=== PATIENT | male | born 1950 | race African-American/Black ===

== ENCOUNTER 2019-04-27 10:58 | Inpatient (IN) | payer OTHER ==
[2019-04-27 11:57] LABS: BASO % 1.1 % (0-2.0); EOS % 1.9 % (0-4.5); HEMATOCRIT 31.7 % (35.4-49); HEMOGLOBIN 10.4 GM/dL (11.7-16.9); LYMPH % 37.6 % (8-40); MCH 31.8 pg (25.7-33.7); MCHC 32.8 g/dl (32.0-35.9); MEAN CELL VOLUME 96.7 fl (80-96); MEAN PLT VOLUME 8.3 fl (7.5-11.1); NEUT % 43.4 % (42.8-82.8); PLATELET COUNT 296 K/MM3 (134-434); RBC 3.27 M/mm3 (4.00-5.60); RDW 14.5 % (11.9-15.9); WHITE BLOOD COUNT 5.1 K/mm3 (4.0-10.0)
[2019-04-27] MEDS ORDERED: ASPIRIN 81 MG CHEWABLE TABLETS PO ONE (12:06)
[2019-04-27 12:13] LABS: INR 1.04 (0.83-1.09); PROTHROMBIN TIME (PATIENT) 12.3 SEC (9.7-13.0)
[2019-04-27] MEDS ORDERED: ASPIRIN 81 MG CHEWABLE TABLETS ONE (12:19)
[2019-04-27 12:22] LABS: N-TERMINAL BNP 615.2 pg/ml (5-125)
[2019-04-27 12:23] LABS: ALBUMIN 3.2 g/dl (3.4-5.0); BILIRUBIN,TOTAL 0.4 mg/dL (0.2-1); BLOOD UREA NITROGEN 22.5 mg/dL (7-18); CALCIUM 9.3 mg/dL (8.5-10.1); CREATININE 1.1 mg/dL (0.55-1.3); POTASSIUM 4.6 mmol/L (3.5-5.1); TOT PROT 6.3 g/dl (6.4-8.2)
[2019-04-27 12:56] LABS: ACTIVATED PTT 40.9 SECONDS (25.2-36.5)
--- NOTE | 2019-04-27 13:08 | PDOC ---
History of Present Illness - General Stated Complaint: CHEST PAIN Time Seen by Provider: 04/27/19 11:32 - History of Present Illness Initial Comments: 04/27/19 12:59 HPI: 69 y/o M with hx of HTN, schizphrenia, COPD, gout, CHF presenting from [facility] for ruleout ACS. Patient has been complaining of left sided chest pain for the past 3 weeks. Pain is intermittent and occurs 6-7x/day lasting 20 minutes and occurs without pattern and self resolves. Today however, the pain was worse than previous episodes and was associated with diaphoresis, LH, and tingling into this left arm and fingers. He has never had these symptoms before. He denies any SOB or exertional component. He denies fever, chills, REGAN, palp, n/v, abd pain, dysuria, change in BM. PMHx: as noted above ROS: as noted SHx: Denies tobacco use; no alcohol use; no rec drugs Allergies: NKDA ROS: GENERAL/CONSTITUTIONAL: No fever or chills. No weakness. HEAD, EYES, EARS, NOSE AND THROAT: No change in vision. No ear pain or discharge. No sore throat. CARDIOVASCULAR: +chest pain RESPIRATORY: No cough, wheezing, or hemoptysis. GASTROINTESTINAL: No nausea, vomiting, diarrhea or constipation. GENITOURINARY: No dysuria, frequency, or change in urination. MUSCULOSKELETAL: No joint or muscle swelling or pain. No neck or back pain. SKIN: No rash NEUROLOGIC: No headache, vertigo, loss of consciousness, or change in strength/ sensation. ENDOCRINE: No increased thirst. No abnormal weight change HEMATOLOGIC/LYMPHATIC: No anemia, easy bleeding, or history of blood clots. ALLERGIC/IMMUNOLOGIC: No hives or skin allergy. PE: GENERAL: Awake, alert, and fully oriented, no acute distress HEAD: No signs of trauma, normocephalic, atraumatic EYES: EOMI, sclera anicteric, conjunctiva clear ENT: Auricles normal inspection, hearing grossly normal, nares patent, oropharynx clear without exudates. Moist mucosa NECK: Normal ROM, no lymphadenopathy LUNGS: No increased work of breathing, symmetrical chest rise, BL mid and lower lung field wheezing HEART: Regular rate and rhythm, normal S1 and S2, no murmurs, peripheral pulses 2+ and equal bilaterally. ABDOMEN: Soft, nondistended, nontender, normoactive bowel sounds. No guarding, no rebound. No masses. No CVAT EXTREMITIES: Normal inspection, Normal range of motion, no edema. No clubbing or cyanosis. NEUROLOGICAL: Cranial nerves II through XII grossly intact. Normal speech, normal gait, no focal sensorimotor deficits SKIN: Warm, Dry, normal turgor, no rashes or lesions noted Past History - Past Medical History Allergies/Adverse Reactions: Allergies Allergy/AdvReac Type Severity Reaction Status Date / Time No Known Allergies Allergy Verified 04/27/19 11:08 Anemia: Yes COPD: No GI Disorders: Yes (gerd) HTN: Yes Psychiatric Problems: Yes (schiophrenia) - Psycho Social/Smoking Cessation Hx Smoking History: Unknown if ever smoked Have you smoked in the past 12 months: No Information on smoking cessation initiated: No Hx Alcohol Use: No Drug/Substance Use Hx: No *Physical Exam - Vital Signs Last Vital Signs Temp Pulse Resp BP Pulse Ox 98.4 F 71 18 115/78 100 04/27/19 11:02 04/27/19 11:02 04/27/19 11:02 04/27/19 11:02 04/27/19 11:02 ED Treatment Course - LABORATORY CBC & Chemistry Diagram: 04/27/19 11:35 04/27/19 11:35 - ADDITIONAL ORDERS Additional order review: Laboratory Results 04/27/19 04/27/19 04/27/19 11:35 11:35 11:35 PT with INR INR PTT (Actin FS) Sodium 138 Potassium 4.6 Chloride 99 Carbon Dioxide 36 H Anion Gap 2 L BUN 22.5 H Creatinine 1.1 Est GFR (CKD-EPI)AfAm 78.41 Est GFR (CKD-EPI)NonAf 67.66 Random Glucose 89 Calcium 9.3 Magnesium 2.0 Total Bilirubin 0.4 AST 16 ALT 19 Alkaline Phosphatase 61 Creatine Kinase 103 Troponin I 0.03 B-Natriuretic Peptide 615.2 H Total Protein 6.3 L Albumin 3.2 L Triglycerides 91 Cholesterol 198 Total LDL Cholesterol 109 H HDL Cholesterol 66 H Lipase 146 Blood Type O NEGATIVE Antibody Screen Negative 04/27/19 11:35 PT with INR 12.30 INR 1.04 PTT (Actin FS) 40.9 H Sodium Potassium Chloride Carbon Dioxide Anion Gap BUN Creatinine Est GFR (CKD-EPI)AfAm Est GFR (CKD-EPI)NonAf Random Glucose Calcium Magnesium Total Bilirubin AST ALT Alkaline Phosphatase Creatine Kinase Troponin I B-Natriuretic Peptide Total Protein Albumin Triglycerides Cholesterol Total LDL Cholesterol HDL Cholesterol Lipase Blood Type Antibody Screen 04/27/19 11:35 RBC 3.27 L MCV 96.7 H MCHC 32.8 RDW 14.5 MPV 8.3 Neutrophils % 43.4 Lymphocytes % 37.6 Monocytes % 16.0 H Eosinophils % 1.9 Basophils % 1.1 - Medications Given in the ED: ED Medications Discontinued Medications Generic Name Dose Route Start Last Admin Trade Name Freq PRN Reason Stop Dose Admin Aspirin 324 mg 04/27/19 12:06 04/27/19 12:30 Asa - PO 04/27/19 12:07 324 mg ONCE ONE Administration Medical Decision Making - Medical Decision Making 04/27/19 14:07 69 y/o M with hx of HTN, schizphrenia, COPD, gout, CHF presenting from [facility] for ruleout ACS. VSS, AF. PE unremarkable -ACS order set -ASA 324 04/27/19 14:08 trop negative ekg" nsr, diffuse t wave inversions, possible std in v2-v3, nl intervals will admit for unstable angina Discharge - Discharge Information Problems reviewed: Yes Clinical Impression/Diagnosis: Angina at rest, EKG abnormalities Condition: Stable - Admission Yes - Follow up/Referral - Patient Discharge Instructions - Post Discharge Activity
[2019-04-27 13:24] LABS: PH,URINE 5.5 (5.0-8.0); URINE APPEARANCE CLEAR; URINE BILIRUBIN NEGATIVE (NEGATIVE); URINE COLOR YELLOW; URINE GLUCOSE (UA) NEGATIVE (NEGATIVE); URINE KETONE NEGATIVE (NEGATIVE); URINE LEUK ESTERASE NEGATIVE (NEGATIVE); URINE NITRITE NEGATIVE (NEGATIVE); URINE PROTEIN NEGATIVE (NEGATIVE); URINE UROBILINOGEN 0.2 mg/dL (0.2-1.0)
--- NOTE | 2019-04-27 14:17 | PDOC ---
Attending Attestation - Resident Resident Name: WiltonCarol - ED Attending Attestation I have performed the following: I have examined & evaluated the patient, The case was reviewed & discussed with the resident, I agree w/resident's findings & plan - HPI HPI: 04/27/19 14:14 6-year-old male with history of hypertension and high cholesterol presents with intermittent chest pain for several months, now worsening and associated with dyspnea on exertion just walking around the [facility]. No fevers or chills, no chest pain in the emergency department. - Physicial Exam PE: 04/27/19 14:15 Vital signs stable, O2 sat normal Well-appearing seated in stretcher speaking full sentences Heart is regular with systolic ejection murmur, lungs with bibasilar crackles Abdomen benign 1-2+ pitting edema bilaterally - Medical Decision Making 04/27/19 14:16 69-year-old male with history of hypertension and high cholesterol presents with intermittent chest pain for several months, recently more associated with dyspnea. Was catheterized in the past but this was 17 years ago, does not report any other cardiac evaluation recently. Hemodynamically stable. Evidence of mild CHF and volume overload on exam. Labs are within normal limits, including troponin Chest x-ray EKG with chronic LVH and strain pattern without acute ischemic changes Given aspirin, admit to telemetry for cardiac work-up Heart Score/ECG Review #1 ECG reviewed & interpreted by me at: 11:14 General ECG Interpretation: Sinus Rhythm, Normal Rate (73), Normal Intervals ( qtc 429), No acute ischemic changes (LVH with strain pattern)
--- NOTE | 2019-04-27 14:39 | HP ---
Admitting History and Physical - Primary Care Physician PCP: Marilyn Gupta - Admission Chief Complaint: chest pain , SOB History of Present Illness: ER HISTORY - History of Present Illness Initial Comments: 04/27/19 12:59 HPI: 69 y/o M with hx of HTN, schizphrenia, COPD, gout, CHF presenting from [facility] for ruleout ACS. Patient has been complaining of left sided chest pain for the past 3 weeks. Pain is intermittent and occurs 6-7x/day lasting 20 minutes and occurs without pattern and self resolves. Today however, the pain was worse than previous episodes and was associated with diaphoresis, LH, and tingling into this left arm and fingers. He has never had these symptoms before. He denies any SOB or exertional component. He denies fever, chills, REGAN, palp, n/v, abd pain, dysuria, change in BM. pt examined by me I looked through his [place] records as well He has been c/o chronic intermittent chest pain, has sob on exertion and was started on lasix PO and aldactone for progressive SOB and leg edema Edema improved but chest pain did not resolve -- which is why he was transferred to the ER Ex smoker, COPD, obesity, CHF-- diastolic Currently has mild left sided chest pain ,no radiation no palpitations, SOB no orthostasis walks with a walker History Source: Patient Limitations to Obtaining History: No Limitations - Past Medical History Cardiovascular: Yes: CHF (distolic), HTN Pulmonary: Yes: COPD Endocrine: Yes: Other (obesity) Additional Past Medical History: ex alcohol - Smoking History Smoking history: Unknown if ever smoked Have you smoked in the past 12 months: No - Alcohol/Substance Use Hx Alcohol Use: No Home Medications - Allergies Allergies/Adverse Reactions: Allergies Allergy/AdvReac Type Severity Reaction Status Date / Time No Known Allergies Allergy Verified 04/27/19 11:08 Review of Systems - Review of Systems Constitutional: denies: Chills, Fever Cardiovascular: reports: Chest Pain, Edema. denies: Palpitations, Shortness of Breath Physical Examination Vital Signs: Vital Signs Temperature 98.0 F 04/27/19 14:23 Pulse Rate 71 04/27/19 14:23 Respiratory Rate 15 04/27/19 14:23 Blood Pressure 130/94 04/27/19 14:23 O2 Sat by Pulse Oximetry (%) 100 04/27/19 14:23 Constitutional: Yes: No Distress, Calm Cardiovascular: Yes: Regular Rate and Rhythm Respiratory: Yes: Diminished Gastrointestinal: Yes: Normal Bowel Sounds, Soft, Abdomen, Obese. No: Tenderness Edema: Yes Edema: LLE: 1+, RLE: 1+ Neurological: Yes: Alert, Oriented Labs: CBC, BMP 04/27/19 11:35 04/27/19 11:35 Imaging - Results Chest X-ray: Image Reviewed (congested) EKG: Image Reviewed (NSR) Problem List - Problems (1) CHF with left ventricular diastolic dysfunction, NYHA class 2 Code(s): I50.30 - UNSPECIFIED DIASTOLIC (CONGESTIVE) HEART FAILURE (2) Diastolic CHF, acute on chronic Code(s): I50.33 - ACUTE ON CHRONIC DIASTOLIC (CONGESTIVE) HEART FAILURE (3) Angina at rest Code(s): I20.8 - OTHER FORMS OF ANGINA PECTORIS (4) COPD (chronic obstructive pulmonary disease) Code(s): J44.9 - CHRONIC OBSTRUCTIVE PULMONARY DISEASE, UNSPECIFIED (5) EKG abnormalities Code(s): R94.31 - ABNORMAL ELECTROCARDIOGRAM [ECG] [EKG] (6) HTN (hypertension) Code(s): I10 - ESSENTIAL (PRIMARY) HYPERTENSION Assessment/Plan PLAN cardiac enzymes negative will check another set on IV lasix BID Cardiology eval OOB heparin sc for DVT prophylaxis Check echo May need stress test monitor renal function and daily weights
--- NOTE | 2019-04-27 14:44 | CON.CARD ---
Consult Consult Specialty:: Cardiology Referred by:: Dr. Plaza Reason for Consultation:: Chest pain and CHF evaluation - History of Present Illness Chief Complaint: chest pain, SOB History of Present Illness: 69M with reported hx of HTN and schizophrenia transferred from group home for eval of chest pain episode last night which reports lasted seconds. Left sided, tightness with radiation to left shoulder. He has been SOB for "the last year." Denies palps, dizziness, syncope, PND or orthopnea. He has mild b/l LE edema but he denies. Report cath 17 years ago---> "no blockages" ECG reviewed, markedly abnl: NSR LVH and diffuse abnl T wave inversions When asked about his LE edema, he states "they were normal but since I've been in group home they are swollen because of the mustard gas they spray all over. 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: Alzheimer's, CVA, Dementia, Migraine, Multiple Sclerosis, Peripheral Neuropathy, Parkinson's, Seizure, Syncope, TIA, Vertigo, Other Cardio/Vascular: Yes: HTN Pulmonary: No: Asthma, Bronchitis, Cancer, COPD, O2 Dependent, Pneumonia, Previously Intubated, Pulmonary Embolus, Pulmonary Fibrosis, Sleep Apnea, Other Gastrointestinal: No: Ascites, Cancer, Constipation, Crohn's Disease, Diverticulitis, Diverticulosis, Esophageal Varices, Gastritis, GERD, GI Bleed, Hemorrhoids, Hiatal Hernia, Inflamatory Bowel Disease, Irritable Bowel Disease, Pancreatitis, Peptic Ulcer Disease, Ulcerative Colitis, Other Hepatobiliary: No: Cirrhosis, Cholelithiasis, Cholecystitis, Choledocholithiasis , Hepatitis A, Hepatitis B, Hepatitis C, Other Renal/: No: Renal Failure, Renal Inusuff, BPH, Cancer, Hematuria, Hemodialysis , Neurogenic Bladder, Renal Calculi, UTI, Other Heme/Onc: No: Anemia, B12 Deficiency, Bleeding Disorder, Cancer, Current Chemotherapy, Current Radiation Therapy, Hemochromatosis, Hypercoaguable State, Myeloproliferative Synd, Sickle Cell Disease, Sickle Cell Trait, Thrombocytopenia, Other Infectious Disease: No: AIDS, C-Diff, Herpes Zoster, HIV, MRSA, STD's, Tuberculosis, VREF, Other Psych: Yes: Schizophrenia Musculoskeletal: No: Bursitis, Chronic low back pain, Hemiparesis, Hemiplegia, Osteoarthritis, Paraplegia, Other Rheumatology: No: Fibromyalgia, Gout, Lupus, Rheumatoid Arthritis, Sarcoidosis, Vasculitis, Other ENT: No: Allergic Rhinitis, Sinusitis, Other Endocrine: No: Carlos's Disease, Roberth's Disease, Diabetes Insipidus, Diabetes Mellitus, Hyperparathyroidism, Hyperthyroidism, Hypothyroidism, Osteopenia, SIADH, Other Dermatology: No: Basal Cell, Cellulitis, Eczema, Melanoma, Psoriasis, Squamous Cell, Other - Alcohol/Substance Use Hx Alcohol Use: No - Smoking History Smoking history: Former smoker Have you smoked in the past 12 months: No - Social History Usual Living Arrangement: Assisted History of Recent Travel: No Home Medications - Allergies Allergies/Adverse Reactions: Allergies Allergy/AdvReac Type Severity Reaction Status Date / Time No Known Allergies Allergy Verified 04/27/19 11:08 Family Medical History Family History: Unremarkable (not pertinent to this presentation- pt cannot provide. ) Review of Systems Findings/Remarks: see HPI - Review of Systems Constitutional: reports: No Symptoms Eyes: reports: No Symptoms HENT: reports: No Symptoms Neck: reports: No Symptoms Cardiovascular: reports: Chest Pain, Shortness of Breath Respiratory: reports: Exercise Intolerance, SOB on Exertion Gastrointestinal: denies: No Symptoms, Abdominal Pain, Bloating, Constipation, Diarrhea, Dysphagia, Indigestion, Melena, Nausea, Rectal Bleeding, Vomiting, Vomiting Blood, Other Genitourinary: denies: No Symptoms, Burning, Discharge, Dysuria, Flank Pain, Frequency, Hematuria, Incontinence, Lesions, Menses, Pain, Testicular Mass, Testicular Pain, Testicular Swelling, Urgency, Vaginal Bleeding, Other Breasts: denies: No Symptoms Reported, See HPI, Breast Implants, Discharge from Nipple, Lumps, Pain, Skin Changes, Other Musculoskeletal: denies: No Symptoms, Back Pain, Crepitus, Decreased ROM, Extremity Pain, Joint Pain, Joint Swelling, Muscle Pain, Muscle Cramps, Muscle Weakness, Other Integumentary: denies: No Symptoms, Blister, Bruising, Change in Color, Eczema, Erythema, Incision, Lesions, Lump, Pallor, Pruritis, Rash, Wound, Other Neurological: denies: No Symptoms, Change in LOC, Change in Speech, Confusion, Dizziness, Headache, Incoordination, Numbness, Parasthesia, Pre-Existing Deficit , Seizure, Syncope, Tremors, Unsteady Gait, Weakness, Other Endocrine: denies: No Symptoms, Excessive Sweating, Flushing, Increased Hunger, Increased Thirst, Intolerance to Cold, Intolerance to Heat, Unexplained Weight Gain, Unexplained Weight Loss, Other Hematology/Lymphatic: denies: No Symptoms, Easily Bruised, Excessive Bleeding, Swollen Glands, Other - Risk Factors Known Risk Factors: Yes: Hypertension, Smoking Vital Signs: Vital Signs Temperature 98.0 F 04/27/19 14:23 Pulse Rate 71 04/27/19 14:23 Respiratory Rate 15 04/27/19 14:23 Blood Pressure 130/94 04/27/19 14:23 O2 Sat by Pulse Oximetry (%) 100 04/27/19 14:23 Constitutional: Yes: No Distress, Calm Eyes: Yes: Conjunctiva Clear Respiratory: Yes: Other (mild rales at bases b/l- 1/3 up) Gastrointestinal: Yes: Soft (nontender), Abdomen, Obese Renal/: No: WNL, Anuria, Bladder Distention, CVA Tenderness - Left, CVA Tenderness - Right, Fernández Present, Hematuria, Incontinence, Menses Present, Oliguria, Polyuria, , Scrotal Edema, Urethral Discharge, Vaginal Bleeding, Vaginal Discharge, Other Cardiovascular: Yes: Regular Rate and Rhythm JVD: No Carotid Bruit: No PMI: Non-Displaced Heart Sounds: Yes: S1, S2 (rrr- no murmurs appreciated in ER (loud surroundings) ) Edema: Yes Edema: LLE: 1+, RLE: 1+ Peripheral Pulses WNL: Yes Neurological: Yes: WNL Psychiatric: Yes: Other (tangential) - Other Data Labs, Other Data: CBC, BMP 04/27/19 11:35 04/27/19 11:35 INR, PTT INR 1.04 (0.83-1.09) 04/27/19 11:35 Troponin, BNP 04/27/19 11:35 Troponin I 0.03 B-Natriuretic Peptide 615.2 H Troponin, BNP 04/27/19 11:35 Troponin I 0.03 B-Natriuretic Peptide 615.2 H Laboratory Tests 04/27/19 04/27/19 04/27/19 11:35 11:35 11:35 WBC 5.1 Hgb 10.4 L Plt Count 296 INR 1.04 PTT (Actin FS) 40.9 H Sodium 138 Potassium 4.6 Creatinine 1.1 Creatine Kinase Troponin I B-Natriuretic Peptide HDL Cholesterol 04/27/19 11:35 WBC Hgb Plt Count INR PTT (Actin FS) Sodium Potassium Creatinine Creatine Kinase 103 Troponin I 0.03 B-Natriuretic Peptide 615.2 H HDL Cholesterol 66 H Echo: Pending Imaging - Results Chest X-ray: Image Reviewed (Increased PVC, cannot r/o infiltrate RML) EKG: Image Reviewed Assessment/Plan IMP: Abnormal ECG Hypertensive heart disease Probable acute on chronic diastolic CHF Atypical chest pain Schizophrenia Former smoker REC: 1. Telemetry for serial cardiac enzymes and IV Lasix with daily weights and BMP to monitor renal fx 2. ASA daily 3. Echo for EF assessment/ structural assessment (ECG suspicious for hypertrophic CM) 4. Continue Labetalol for now, may be optimal to switch to Coreg or Toprol pending echo and clinical course. Hold on AURELIA/ARB until EF defined. 5. To consider ischemic evaluation when enzymes trended and euvolemic: may not be able to consent (?psych situation/tangential thoughts) 6. For chest CT, as per PMD. Thank you.
[2019-04-27] MEDS ORDERED: ENOXAPARIN NA (PORCINE) 100 MG/1 ML DISP.SYRIN SQ ONE (14:55)
[2019-04-27] MEDS ORDERED: oxyCODONE HCL 5 MG TABLET PO ONE (14:55)
--- NOTE | 2019-04-27 15:01 | EKG ---
Test Reason : Blood Pressure : / mmHG Vent. Rate : 071 BPM Atrial Rate : 071 BPM P-R Int : 190 ms QRS Dur : 090 ms QT Int : 400 ms P-R-T Axes : 047 003 182 degrees QTc Int : 434 ms NORMAL SINUS RHYTHM LEFT VENTRICULAR HYPERTROPHY WITH REPOLARIZATION ABNORMALITY Early transition of the anterior precordial leads ABNORMAL ECG NO PREVIOUS ECGS AVAILABLE Confirmed by MD Ramirez Daniel ([id number]) on 04/27/2019 3:00:58 PM Referred By: Confirmed By:Kamran Ramirez MD
--- NOTE | 2019-04-27 15:59 | ECHO ---
Name: STEPHANIE SOSA Exam:Adult Echocardiogram Study Date: 04/27/2019 03:05 PM Age: 69 yrs Reason For Study: Chest pain Height: 65 in Weight: 302 lb BSA: 2.4 m2 MMode/2D Measurements & Calculations IVSd: 0.89 cm Ao root diam: 4.4 cm LVIDd: 4.8 cm LA dimension: 3.6 cm LVIDs: 2.9 cm ACS: 2.4 cm LVPWd: 1.1 cm IVSs: 0.93 cm LVPWs: 1.0 cm EDV(Teich): 107.5 ml ESV(Teich): 32.3 ml Doppler Measurements & Calculations MV E max tod: 90.0 cm/sec Ao V2 max: 161.5 cm/sec MV A max tod: 70.4 cm/sec Ao max P.4 mmHg MV E/A: 1.3 Ao V2 mean: 115.1 cm/sec Ao mean P.7 mmHg Ao V2 VTI: 30.0 cm TR max tod: 238.9 cm/sec Med Peak E' Tod: 11.3 cm/sec TR max P.8 mmHg Med E/e': 8.0 Lat Peak E' Tod: 6.4 cm/sec Lat E/e': 14.0 Left Ventricle The left ventricular size, thickness and function are normal. Right Ventricle The right ventricle is normal in size and function. Atria Normal left and right atrial size and function. Mitral Valve The mitral valve leaflets appear normal. There is no evidence of stenosis, fluttering, or prolapse. Tricuspid Valve The tricuspid valve is not well visualized, but is grossly normal. There is mild tricuspid regurgitat ion. Aortic Valve The aortic valve is normal in structure and function. Pulmonic Valve The pulmonic valve is not well visualized. Great Vessels The aortic root is normal size. Pericardium/Pleura There is no pericardial effusion. Interpretation Summary TDS Poor acoustic windows The left ventricular size, thickness and function are normal EF 70% The right ventricle is normal in size and function. Normal left and right atrial size and function. The mitral valve leaflets appear normal. There is no evidence of stenosis, fluttering, or prolapse. The tricuspid valve is not well visualized, but is grossly normal. There is mild tricuspid regurgitation. The aortic valve is normal in structure and function. The pulmonic valve is not well visualized. The aortic root is normal size. There is no pericardial effusion. MD Kamran Ramirez 04/27/2019 03:59 PM
[2019-04-27] MEDS ORDERED: FUROSEMIDE 40 MG/4 ML INJECTABLE VIAL ONE (16:18)
[2019-04-27] MEDS: FUROSEMIDE 40 MG/4 ML INJECTABLE VIAL IVPUSH SCH (16:22)
[2019-04-27] MEDS ORDERED: FLU VACCINE QUAD 60 MCG/0.5 ML (MDV 19-20) IM ONE (16:53)
[2019-04-27] MEDS: LABETALOL HCL 100 MG TABLET (FP) PO SCH (22:33)
[2019-04-28 06:11] LABS: BASO % 0.5 % (0-2.0); EOS % 1.1 % (0-4.5); HEMATOCRIT 32.7 % (35.4-49); HEMOGLOBIN 10.9 GM/dL (11.7-16.9); LYMPH % 19.1 % (8-40); MCH 32.1 pg (25.7-33.7); MCHC 33.4 g/dl (32.0-35.9); MEAN CELL VOLUME 96.1 fl (80-96); MEAN PLT VOLUME 7.8 fl (7.5-11.1); MONO % 10.7 % (3.8-10.2); NEUT % 68.6 % (42.8-82.8); PLATELET COUNT 291 K/MM3 (134-434); RDW 14.7 % (11.9-15.9); WHITE BLOOD COUNT 5.7 K/mm3 (4.0-10.0)
[2019-04-28 06:34] LABS: ALBUMIN 3.2 g/dl (3.4-5.0); BILIRUBIN,TOTAL 0.6 mg/dL (0.2-1); BLOOD UREA NITROGEN 21.3 mg/dL (7-18); POTASSIUM 4.4 mmol/L (3.5-5.1); TOT PROT 6.4 g/dl (6.4-8.2)
--- NOTE | 2019-04-28 09:42 | PN ---
Progress Note (short form) - Note Progress Note: No distress feels well no chest pain or SOB edema decreased Vital Signs - 24 hr 04/27/19 04/27/19 04/27/19 11:02 14:23 15:59 Temperature 98.4 F 98.0 F 97.9 F Pulse Rate 71 Pulse Rate [ 71 75 Apical] Respiratory 18 15 20 Rate Blood Pressure 115/78 Blood Pressure 130/94 148/93 [Right Arm] O2 Sat by Pulse 100 100 100 Oximetry (%) 04/27/19 04/27/19 04/27/19 16:38 16:47 16:59 Temperature 98.9 F Pulse Rate 78 76 Pulse Rate [ Apical] Respiratory 21 H 18 Rate Blood Pressure 145/95 161/85 Blood Pressure [Right Arm] O2 Sat by Pulse 100 Oximetry (%) 04/27/19 04/27/19 04/27/19 19:21 20:00 20:42 Temperature Pulse Rate 92 H 87 Pulse Rate [ Apical] Respiratory 19 20 18 Rate Blood Pressure 147/78 140/75 Blood Pressure [Right Arm] O2 Sat by Pulse 100 Oximetry (%) 04/27/19 04/28/19 04/28/19 22:00 00:00 00:33 Temperature 98.1 F Pulse Rate 84 90 Pulse Rate [ Apical] Respiratory 22 H 23 H Rate Blood Pressure 174/82 H 139/86 Blood Pressure [Right Arm] O2 Sat by Pulse Oximetry (%) 04/28/19 04/28/19 04/28/19 02:00 04:00 07:55 Temperature 97.1 F L 97.3 F L Pulse Rate 97 H Pulse Rate [ Apical] Respiratory 22 H 13 16 Rate Blood Pressure 136/104 H 144/66 124/78 Blood Pressure [Right Arm] O2 Sat by Pulse Oximetry (%) 04/28/19 04/28/19 08:10 09:53 Temperature Pulse Rate 90 Pulse Rate [ Apical] Respiratory 18 Rate Blood Pressure 122/75 Blood Pressure [Right Arm] O2 Sat by Pulse 100 Oximetry (%) Current Medications Generic Name Dose Route Start Last Admin Trade Name Freq PRN Reason Stop Dose Admin Aspirin 81 mg 04/28/19 10:00 04/28/19 09:48 Asa - PO 81 mg DAILY MARY Administration Furosemide 40 mg 04/27/19 15:00 04/28/19 09:48 Lasix Injection - IVPUSH 40 mg DAILY MARY Administration Labetalol HCl 100 mg 04/27/19 22:00 04/28/19 09:48 Normodyne - PO 100 mg BID MARY Administration Laboratory Results - last 24 hr 04/27/19 04/27/19 04/27/19 11:35 11:35 11:35 WBC 5.1 RBC 3.27 L Hgb 10.4 L Hct 31.7 L MCV 96.7 H MCH 31.8 MCHC 32.8 RDW 14.5 Plt Count 296 MPV 8.3 Absolute Neuts (auto) 2.2 Neutrophils % 43.4 Lymphocytes % 37.6 Monocytes % 16.0 H Eosinophils % 1.9 Basophils % 1.1 Nucleated RBC % 0 PT with INR 12.30 INR 1.04 PTT (Actin FS) 40.9 H Sodium 138 Potassium 4.6 Chloride 99 Carbon Dioxide 36 H Anion Gap 2 L BUN 22.5 H Creatinine 1.1 Est GFR (CKD-EPI)AfAm 78.41 Est GFR (CKD-EPI)NonAf 67.66 Random Glucose 89 Calcium 9.3 Magnesium Total Bilirubin 0.4 AST 16 ALT 19 Alkaline Phosphatase 61 Creatine Kinase Troponin I B-Natriuretic Peptide Total Protein 6.3 L Albumin 3.2 L Triglycerides Cholesterol Total LDL Cholesterol HDL Cholesterol Lipase Urine Color Urine Appearance Urine pH Ur Specific Nolan Urine Protein Urine Glucose (UA) Urine Ketones Urine Blood Urine Nitrite Urine Bilirubin Urine Urobilinogen Ur Leukocyte Esterase Blood Type Antibody Screen 04/27/19 04/27/19 04/27/19 11:35 11:35 12:36 WBC RBC Hgb Hct MCV MCH MCHC RDW Plt Count MPV Absolute Neuts (auto) Neutrophils % Lymphocytes % Monocytes % Eosinophils % Basophils % Nucleated RBC % PT with INR INR PTT (Actin FS) Sodium Potassium Chloride Carbon Dioxide Anion Gap BUN Creatinine Est GFR (CKD-EPI)AfAm Est GFR (CKD-EPI)NonAf Random Glucose Calcium Magnesium 2.0 Total Bilirubin AST ALT Alkaline Phosphatase Creatine Kinase 103 Troponin I 0.03 B-Natriuretic Peptide 615.2 H Total Protein Albumin Triglycerides 91 Cholesterol 198 Total LDL Cholesterol 109 H HDL Cholesterol 66 H Lipase 146 Urine Color Yellow Urine Appearance Clear Urine pH 5.5 Ur Specific Nolan 1.010 Urine Protein Negative Urine Glucose (UA) Negative Urine Ketones Negative Urine Blood Negative Urine Nitrite Negative Urine Bilirubin Negative Urine Urobilinogen 0.2 Ur Leukocyte Esterase Negative Blood Type O NEGATIVE Antibody Screen Negative 04/27/19 04/27/19 04/28/19 18:26 18:26 00:00 WBC RBC Hgb Hct MCV MCH MCHC RDW Plt Count MPV Absolute Neuts (auto) Neutrophils % Lymphocytes % Monocytes % Eosinophils % Basophils % Nucleated RBC % PT with INR INR PTT (Actin FS) Sodium Potassium Chloride Carbon Dioxide Anion Gap BUN Creatinine Est GFR (CKD-EPI)AfAm Est GFR (CKD-EPI)NonAf Random Glucose Calcium Magnesium Total Bilirubin AST ALT Alkaline Phosphatase Creatine Kinase 108 107 Troponin I 0.02 0.03 B-Natriuretic Peptide Total Protein Albumin Triglycerides Cholesterol Total LDL Cholesterol HDL Cholesterol Lipase Urine Color Urine Appearance Urine pH Ur Specific Nolan Urine Protein Urine Glucose (UA) Urine Ketones Urine Blood Urine Nitrite Urine Bilirubin Urine Urobilinogen Ur Leukocyte Esterase Blood Type O NEGATIVE Antibody Screen 04/28/19 04/28/19 05:25 05:25 WBC 5.7 RBC 3.40 L Hgb 10.9 L Hct 32.7 L MCV 96.1 H MCH 32.1 MCHC 33.4 RDW 14.7 Plt Count 291 MPV 7.8 Absolute Neuts (auto) 3.9 Neutrophils % 68.6 D Lymphocytes % 19.1 D Monocytes % 10.7 H Eosinophils % 1.1 Basophils % 0.5 Nucleated RBC % 0 PT with INR INR PTT (Actin FS) Sodium 138 Potassium 4.4 Chloride 99 Carbon Dioxide 36 H Anion Gap 3 L BUN 21.3 H Creatinine 1.0 Est GFR (CKD-EPI)AfAm 87.99 Est GFR (CKD-EPI)NonAf 75.92 Random Glucose 88 Calcium 9.0 Magnesium Total Bilirubin 0.6 AST 13 L ALT 19 Alkaline Phosphatase 59 Creatine Kinase Troponin I B-Natriuretic Peptide Total Protein 6.4 Albumin 3.2 L Triglycerides Cholesterol Total LDL Cholesterol HDL Cholesterol Lipase Urine Color Urine Appearance Urine pH Ur Specific Nolan Urine Protein Urine Glucose (UA) Urine Ketones Urine Blood Urine Nitrite Urine Bilirubin Urine Urobilinogen Ur Leukocyte Esterase Blood Type Antibody Screen S1 S2 RRR \Lungs decreased \Abd- soft, obese, NT edema decreased greatly PLAN Continue with IV lasix BID for stress test today-- first part continue Labetalol Cardiology follow up noted check renal function Problem List - Problems (1) HTN (hypertension) Code(s): I10 - ESSENTIAL (PRIMARY) HYPERTENSION (2) COPD (chronic obstructive pulmonary disease) Code(s): J44.9 - CHRONIC OBSTRUCTIVE PULMONARY DISEASE, UNSPECIFIED (3) Angina at rest Code(s): I20.8 - OTHER FORMS OF ANGINA PECTORIS (4) EKG abnormalities Code(s): R94.31 - ABNORMAL ELECTROCARDIOGRAM [ECG] [EKG]
[2019-04-28] MEDS: FUROSEMIDE 40 MG/4 ML INJECTABLE VIAL IVPUSH SCH (09:48)
[2019-04-28] MEDS: ASPIRIN 81 MG CHEWABLE TABLETS PO SCH (09:48)
[2019-04-28] MEDS: LABETALOL HCL 100 MG TABLET (FP) PO SCH ×2 (09:48→21:43)
--- NOTE | 2019-04-28 10:18 | PN ---
Progress Note (short form) - Note Progress Note: s: no chest pain, palps, dizziness. dyspnea and edema improving Current Medications Aspirin (Asa -) 81 mg PO DAILY [facility] Last Admin: 04/28/19 09:48 Dose: 81 mg Furosemide (Lasix Injection -) 40 mg IVPUSH DAILY [facility] Last Admin: 04/28/19 09:48 Dose: 40 mg Labetalol HCl (Normodyne -) 100 mg PO BID [facility] Last Admin: 04/28/19 09:48 Dose: 100 mg Vital Signs Period Temp Pulse Resp BP Sys/Sandra Pulse Ox Last 24 Hr 97.1 F-98.9 F 71-97 13-23 115-174/66-104 100-100 Constitutional: Yes: No Distress, Calm Eyes: Yes: Conjunctiva Clear Respiratory: Yes: Other (eduardo rales at bases) Gastrointestinal: Yes: Soft (nontender), Abdomen, Obese Cardiovascular: Yes: Regular Rate and Rhythm, nl s1 s2 JVD: No Carotid Bruit: No PMI: Non-Displaced Edema: Yes Edema: trace bilaterally Psychiatric: Yes: Other (tangential) no jaundice, diaphoresis Imaging - Results Chest X-ray: Image Reviewed (Increased PVC, cannot r/o infiltrate RML) EKG: Image Reviewed echo 04/2019 nl LV/RV, EF 70%, mild TR tele: sinus Assessment/Plan IMP: Abnormal ECG Hypertensive heart disease acute on chronic diastolic CHF Atypical chest pain Schizophrenia Former smoker REC: - trop neg x3, chest pain now resolved - will evaluate with pharmacologic mibi - cont IV lasix - sob, edema improving. monitor Cr, lytes, daily weights - cont aspirin - cont labetalol, bp stable
[2019-04-28] MEDS: HEPARIN NA (PORCINE) 5,000 UNITS/ML 1ML VIAL SQ SCH (21:35)
[2019-04-28] MEDS: ACETAMINOPHEN 325 MG TABLET (FP) PO PRN (21:36)
[2019-04-29 07:45] LABS: ALBUMIN 3.2 g/dl (3.4-5.0); BILIRUBIN,TOTAL 0.5 mg/dL (0.2-1); BLOOD UREA NITROGEN 27.8 mg/dL (7-18); CALCIUM 8.7 mg/dL (8.5-10.1); CREATININE 1.2 mg/dL (0.55-1.3); POTASSIUM 4.2 mmol/L (3.5-5.1); TOT PROT 6.3 g/dl (6.4-8.2)
[2019-04-29] MEDS ORDERED: PT OWN MED DRAWER 7, Y5N ONE (08:57)
[2019-04-29] MEDS: FUROSEMIDE 40 MG/4 ML INJECTABLE VIAL IVPUSH SCH (09:13)
[2019-04-29] MEDS: HEPARIN NA (PORCINE) 5,000 UNITS/ML 1ML VIAL SQ SCH ×2 (09:13→22:50)
[2019-04-29] MEDS ORDERED: REGADENOSON 0.4 MG/5 ML PRE-FILLED SYRINGE IVPUSH ONE ×2 (09:30→10:27)
--- NOTE | 2019-04-29 10:50 | PN ---
Progress Note (short form) - Note Progress Note: s: no chest pain, palps, dizziness. dyspnea and edema improving Current Medications Generic Name Dose Route Start Last Admin Trade Name Melly PRN Reason Stop Dose Admin Acetaminophen 650 mg 04/28/19 20:12 04/28/19 21:36 Tylenol - PO 650 mg Q6H PRN Administration PAIN LEVEL 1-5 Aspirin 81 mg 04/28/19 10:00 04/28/19 09:48 Asa - PO 81 mg DAILY MARY Administration Furosemide 40 mg 04/27/19 15:00 04/29/19 09:13 Lasix Injection - IVPUSH 40 mg DAILY MARY Administration Heparin Sodium (Porcine) 5,000 unit 04/28/19 22:00 04/29/19 09:13 Heparin - SQ 5,000 unit BID MARY Administration Labetalol HCl 100 mg 04/27/19 22:00 04/28/19 21:43 Normodyne - PO 100 mg BID MARY Administration Vital Signs Period Temp Pulse Resp BP Sys/Sandra Pulse Ox Last 24 Hr 97.2 F-97.9 F 81-98 18-20 100-141/60-93 100 Constitutional: Yes: No Distress, Calm Eyes: Yes: Conjunctiva Clear Respiratory: Yes: Other (eduardo rales at bases) Gastrointestinal: Yes: Soft (nontender), Abdomen, Obese Cardiovascular: Yes: Regular Rate and Rhythm, nl s1 s2 JVD: No Carotid Bruit: No PMI: Non-Displaced Edema: Yes Edema: trace bilaterally Psychiatric: Yes: Other (tangential) no jaundice, diaphoresis CBC, BMP 04/28/19 05:25 04/29/19 06:30 Imaging - Results Chest X-ray: Image Reviewed (Increased PVC, cannot r/o infiltrate RML) EKG: Image Reviewed echo 04/2019 nl LV/RV, EF 70%, mild TR tele: sinus Assessment/Plan IMP: Abnormal ECG Hypertensive heart disease acute on chronic diastolic CHF Atypical chest pain Schizophrenia Former smoker REC: - trop neg x3, chest pain now resolved - will evaluate with pharmacologic mibi today - cont IV lasix - sob, edema improving. monitor Cr, lytes, daily weights - cont aspirin - cont labetalol, bp stable
--- NOTE | 2019-04-29 10:58 | PN ---
Progress Note (short form) - Note Progress Note: No distress feels well no chest pain or SOB edema decreased went for 1st part of stress test yesterday Vital Signs - 24 hr 04/28/19 04/28/19 04/28/19 14:00 16:00 18:14 Temperature 97.5 F L 97.9 F Pulse Rate 89 98 H 81 Respiratory 18 18 18 Rate Blood Pressure 132/81 141/93 121/71 O2 Sat by Pulse Oximetry (%) 04/28/19 04/28/19 04/29/19 20:44 22:00 02:00 Temperature 97.2 F L Pulse Rate 88 Respiratory 18 18 18 Rate Blood Pressure 113/66 107/66 O2 Sat by Pulse 100 Oximetry (%) 04/29/19 04/29/19 04:52 09:02 Temperature Pulse Rate 82 Respiratory 18 20 Rate Blood Pressure 100/60 120/66 O2 Sat by Pulse Oximetry (%) Current Medications Generic Name Dose Route Start Last Admin Trade Name Freq PRN Reason Stop Dose Admin Acetaminophen 650 mg 04/28/19 20:12 04/28/19 21:36 Tylenol - PO 650 mg Q6H PRN Administration PAIN LEVEL 1-5 Aspirin 81 mg 04/28/19 10:00 04/28/19 09:48 Asa - PO 81 mg DAILY MARY Administration Furosemide 40 mg 04/27/19 15:00 04/29/19 09:13 Lasix Injection - IVPUSH 40 mg DAILY MARY Administration Heparin Sodium (Porcine) 5,000 unit 04/28/19 22:00 04/29/19 09:13 Heparin - SQ 5,000 unit BID MARY Administration Labetalol HCl 100 mg 04/27/19 22:00 04/28/19 21:43 Normodyne - PO 100 mg BID MARY Administration Laboratory Results - last 24 hr 04/29/19 06:30 Sodium 138 Potassium 4.2 Chloride 97 L Carbon Dioxide 38 H Anion Gap 3 L BUN 27.8 H Creatinine 1.2 Est GFR (CKD-EPI)AfAm 70.58 Est GFR (CKD-EPI)NonAf 60.90 Random Glucose 85 Calcium 8.7 Total Bilirubin 0.5 AST 11 L ALT 16 Alkaline Phosphatase 61 Total Protein 6.3 L Albumin 3.2 L TSH 1.71 Free T4 0.81 S1 S2 RRR Lungs decreased Abd- soft, obese, NT edema decreased ++ PLAN Continue with IV lasix -->now dosed daily for stress test today-- second part continue Labetalol Cardiology follow up noted check renal function further management after stress test results Problem List - Problems (1) CHF with left ventricular diastolic dysfunction, NYHA class 2 Code(s): I50.30 - UNSPECIFIED DIASTOLIC (CONGESTIVE) HEART FAILURE (2) Diastolic CHF, acute on chronic Code(s): I50.33 - ACUTE ON CHRONIC DIASTOLIC (CONGESTIVE) HEART FAILURE (3) Angina at rest Code(s): I20.8 - OTHER FORMS OF ANGINA PECTORIS (4) COPD (chronic obstructive pulmonary disease) Code(s): J44.9 - CHRONIC OBSTRUCTIVE PULMONARY DISEASE, UNSPECIFIED (5) EKG abnormalities Code(s): R94.31 - ABNORMAL ELECTROCARDIOGRAM [ECG] [EKG] (6) HTN (hypertension) Code(s): I10 - ESSENTIAL (PRIMARY) HYPERTENSION
[2019-04-29] MEDS: LABETALOL HCL 100 MG TABLET (FP) PO SCH ×2 (13:55→23:57)
[2019-04-29] MEDS: ASPIRIN 81 MG CHEWABLE TABLETS PO SCH (13:55)
[2019-04-29 15:10] VITALS: BMI 41.7
[2019-04-30 07:20] LABS: BLOOD UREA NITROGEN 38.2 mg/dL (7-18); CALCIUM 8.6 mg/dL (8.5-10.1); CREATININE 1.2 mg/dL (0.55-1.3); POTASSIUM 3.9 mmol/L (3.5-5.1)
[2019-04-30] MEDS: HEPARIN NA (PORCINE) 5,000 UNITS/ML 1ML VIAL SQ SCH (09:26)
[2019-04-30] MEDS: FUROSEMIDE 40 MG/4 ML INJECTABLE VIAL IVPUSH SCH (09:26)
[2019-04-30] MEDS: LABETALOL HCL 100 MG TABLET (FP) PO SCH (09:26)
[2019-04-30] MEDS: ASPIRIN 81 MG CHEWABLE TABLETS PO SCH (09:26)
--- NOTE | 2019-04-30 09:41 | DS ---
Physical Examination Vital Signs: Vital Signs Temperature 97.2 F L 04/30/19 02:00 Pulse Rate 80 04/30/19 06:00 Respiratory Rate 11 04/30/19 06:00 Blood Pressure 119/58 L 04/30/19 06:00 O2 Sat by Pulse Oximetry (%) 100 04/29/19 21:00 Findings/Remarks: PT SEEN/ EXAMINED CHART REVIEWED AWAKE/ COMFORTABLE DENIES CP/ SOB LEG EDEMA -RESOLVED Constitutional: Yes: No Distress, Calm Eyes: Yes: Conjunctiva Clear Neck: Yes: Supple Cardiovascular: Yes: Regular Rate and Rhythm Respiratory: Yes: CTA Bilaterally, Diminished (AT BASES) Gastrointestinal: Yes: Soft Edema: LLE: Trace, RLE: Trace Neurological: Yes: Alert Labs: CBC, BMP 04/28/19 05:25 04/30/19 06:15 Discharge Summary Problems reviewed: Yes Reason For Visit: ANGINA AT REST,ABN ELECTROCARDIOGRAPHY Current Active Problems Angina at rest (Acute) CHF with left ventricular diastolic dysfunction, NYHA class 2 (Acute) COPD (chronic obstructive pulmonary disease) (Acute) Diastolic CHF, acute on chronic (Acute) EKG abnormalities (Acute) HTN (hypertension) (Acute) Hospital Course: 69 y/o M with hx of HTN, schizphrenia, COPD, gout, CHF presenting from [facility] for CP SC ruled out followed by cardiology stress test -ve. Echo - mild TV regurgitation - otherwise ok started on lasix also ct chest - small nodule-right upper and lower Non calcified- 3 month f/u ct scan recommended d/c cardiology also today stable for d/c meds reconcilled d/w rn also. Condition: Stable - Instructions Referrals: ON STAFF,NOT [Primary Care Provider] - Disposition: [facility] - Home Medications Comprehensive Discharge Medication List: Ambulatory Orders Acetaminophen [Tylenol .Regular Strength -] 650 mg PO Q6H PRN tablet 04/30/19 Furosemide [Lasix] 40 mg PO DAILY #30 tablet 04/30/19 Heparin - 5,000 unit SQ BID vial 04/30/19 Labetalol HCl [Normodyne -] 50 mg PO BID tablet 04/30/19 Potassium Chloride 10 meq PO DAILY #30 capsule.er 04/30/19
--- NOTE | 2019-04-30 09:45 | PN ---
Progress Note, Physician Chief Complaint: seen in ICU No CP or SOB TELE: NSR - Current Medication List Current Medications: Active Medications Acetaminophen (Tylenol -) 650 mg PO Q6H PRN PRN Reason: PAIN LEVEL 1-5 Last Admin: 04/28/19 21:36 Dose: 650 mg Aspirin (Asa -) 81 mg PO DAILY [facility] Last Admin: 04/30/19 09:26 Dose: 81 mg Furosemide (Lasix Injection -) 40 mg IVPUSH DAILY [facility] Last Admin: 04/30/19 09:26 Dose: 40 mg Heparin Sodium (Porcine) (Heparin -) 5,000 unit SQ BID [facility] Last Admin: 04/30/19 09:26 Dose: 5,000 unit Labetalol HCl (Normodyne -) 100 mg PO BID [facility] Last Admin: 04/30/19 09:26 Dose: 100 mg - Objective Vital Signs: Vital Signs Temperature 97.2 F L 04/30/19 02:00 Pulse Rate 80 04/30/19 06:00 Respiratory Rate 11 04/30/19 06:00 Blood Pressure 119/58 L 04/30/19 06:00 O2 Sat by Pulse Oximetry (%) 100 04/29/19 21:00 Constitutional: Yes: No Distress Cardiovascular: Yes: Regular Rate and Rhythm Respiratory: Yes: CTA Bilaterally Gastrointestinal: Yes: Soft, Abdomen, Obese Edema: No Neurological: Yes: Alert, Oriented Labs: CBC, BMP 04/28/19 05:25 04/30/19 06:15 INR, PTT INR 1.04 (0.83-1.09) 04/27/19 11:35 - ....Imaging EKG: Image Reviewed Assessment/Plan echo 04/2019 nl LV/RV, EF 70%, mild TR tele: sinus Assessment/Plan IMP: Abnormal ECG,, normal nuclear stress test Hypertensive heart disease acute on chronic diastolic CHF Atypical chest pain Schizophrenia Former smoker REC: - trop neg x3, chest pain now resolved, negative stress MPI - OK switch PO Lasix - cont aspirin - cont labetalol -BP low normal, may need to reduce Labetolol dose -No further inpatient cardiac w/u planned at this time.
[2019-04-30] MEDS: ACETAMINOPHEN 325 MG TABLET (FP) PO PRN (12:47)
[2019-04-30 13:58] VITALS: BP 108/77; PULSE 88; TEMP 98.5
== END 2019-04-30 14:24 | DRG 311 ==
LOC: JER 10:58 → JERBED 14:18 → J2W 16:33
PROVIDERS: ADMIT Internal Medicine; ATTEND Internal Medicine
DX: I20.8 Other forms of angina pectoris (principal); I50.33 Acute on chronic diastolic (congestive) heart failure; Z68.41 Body mass index [BMI] 40.0-44.9, adult; I11.0 Hypertensive heart disease with heart failure; F20.9 Schizophrenia, unspecified; J44.9 Chronic obstructive pulmonary disease, unspecified; M1A.9XX0 Chronic gout, unspecified, without tophus (tophi); K21.9 Gastro-esophageal reflux disease without esophagitis; E66.9 Obesity, unspecified; R07.89 Other chest pain
CPT/HCPCS: 36415; 71045-TC-FY; 71250-TC; 80048; 80053; 80061; 81003; 82550; 83690; 83721; 83735; 83880; 84439; 84443; 84484; 85025; 85610; 85730; 86850; 86900; 86901; 93005; 93010; 93306-TC; 99283-25; A9502; G0008; J1644; Q2036